=== PATIENT | female | born 1970 | race Caucasian/White ===

== ENCOUNTER 2017-02-11 15:19 | Emergency (ER) | payer OTHER ==
--- NOTE | 2017-02-11 16:15 | ED ORDER SUMMARY ---
..... Patient: JOSE ARNDT OrderSheet [facility] VisitID: [id number] [address] [place] [address] 46y, F Registration Date/Time: 02/11/2017 ORDER SHEET Weight: 54.4 kg (stated) Allergies: Sulfa Antibiotics GENERAL ORDERS: MEDICATION ORDERS: LORazepam PO 1 mg (HIGH ALERT MEDICATION, NOW) (16:10 02/11/2017 Lee DAVE) (Cancelled: Other16:35 Lee DAVE) IV FLUIDS: ORDER SHEET NOTES: [Electronically signed by Jojo Eaton R.N. (20:02/11/2017)] [Electronically signed by Jose G Vail MD (12:30 02/12/2017)] [Electronically locked/signed by Jojo Eaton R.N. (:02/11/2017)]
--- NOTE | 2017-02-11 16:15 | ED ORDER SUMMARY ---
..... Patient: JOSE ARNDT OrderSheet [facility] VisitID: [id number] [address] [place] [address] 46y, F Registration Date/Time: 02/11/2017 ORDER SHEET Weight: 54.4 kg (stated) Allergies: Sulfa Antibiotics GENERAL ORDERS: MEDICATION ORDERS: LORazepam PO 1 mg (HIGH ALERT MEDICATION, NOW) (16:10 02/11/2017 Lee DAVE) (Cancelled: Other16:35 Lee DAVE) IV FLUIDS: ORDER SHEET NOTES: [Electronically signed by Jojo Eaton R.N. (20:02/11/2017)] [Electronically signed by Jose G Vail MD (12:30 02/12/2017)] [Electronically locked/signed by Jojo Eaton R.N. (:02/11/2017)]
--- NOTE | 2017-02-11 16:15 | ED CLINICAL REPORT ---
Clinical Report - Physicians/Mid Levels [facility] [address] [place] [address] 02/11/2017 15:22 Patient: JOSE ARNDT Time Seen: 15:54. Arrived- By private vehicle. Historian- patient and family. HISTORY OF PRESENT ILLNESS Chief Complaint: ANXIOUS. This started several weeks ago. The patient has exhibited a behavior change. (increased anxiety). She is non-compliant with medication (out of antidepressant for some time). Has not been eating or sleeping. No delusions, suicidal thoughts or self-injury inflicted. She has had hallucinations (equivocal). The symptoms are described as moderate. No injury is present. Additional history - Ms Arndt has the diagnosis of anxiety and depression. She is a [facility] client and has missed several appointments. She is out of her Wellbutrin. Similar symptoms previously: REVIEW OF SYSTEMS No headache, chest pain, palpitations, abdominal pain or vomiting. No diarrhea. PAST HISTORY ( PCP: Zhang Dale Ops: BTL Illness: Anxiety and depression). SOCIAL HISTORY Smoker- current status unknown (Currently non smoker). ADDITIONAL NOTES The nursing notes have been reviewed. PHYSICAL EXAM Vital Signs: 02/11/2017 16:45 BP: 179/96. HR: 94. RR: 17. O2 saturation: 100%. Pain level now: 0/10. 02/11/2017 15:27 BP: 185/102. HR: 99. RR: 19. O2 saturation: 100%. Temp: 98.1 F. Pain level now: 0/10. Appearance: Alert. Anxious. (Shaking). Eyes: Pupils equal, round and reactive to light. Neck: Normal inspection. Neck supple. CVS: Normal heart rate and rhythm. Heart sounds normal. Respiratory: Chest nontender. Abdomen: Soft and nontender. Skin: Skin warm. Normal skin color. Extremities: Extremities exhibit normal ROM. No lower extremity edema. Psych / Neuro: Oriented X 3. Speech normal. Cognition normal. Thought process and content normal. Insight and judgement normal. Cranial nerves normal (as tested). Normal gait. No motor deficit. No sensory deficit. PROGRESS AND PROCEDURES Course of Care: My initial plan was to give lorazepam po in the ED and a 2-3 day supply for home use as well as a Wellbutrin Rx. I told the patient this. When the nurse Jojo went administer the med the patient was so soundly asleep that she was difficult to awaken. Jojo also called [facility] and found out that the patient had missed several appointments . I cancelled the Lorazepam po and Rx. CLINICAL IMPRESSION Anxiety reaction (WITH DEPRESSION). INSTRUCTIONS (STAY WITH YOUR FRIEND MAKE SURE YOU HAVE A MENTAL HEALTH APPOINTMENT. IMMEDIATE 911 CALL OR RETURN TO THE ED IF YOU BECOME AFRAID THAT YOU MIGHT HURT YOURSELF.). Prescription Medications: Wellbutrin 100 mg: Take 1 orally every 12 hours. Dispense thirty (30). No refills. Substitution is permissible. Follow-up: Follow up with doctor YOUR COUNSELLOR. Understanding of the discharge instructions verbalized by patient. (Electronically signed by Jose G Vail MD 02/12/2017 12:30)
--- NOTE | 2017-02-11 16:15 | ED NURSING NOTES ---
Clinical Report - Nurses [facility] [address] [place] [address] 02/11/2017 15:22 Patient: JOSE ARNDT TRIAGE Triage time 15:Feb 11 2017. Chief Complaint: HALLUCINATIONS and (pt reports auditory hallucinations "it really scares me" per father of her children x 1 month. pt has case sealer at [facility] Taurus Barron that was contacted and said to bring pt here for eval- denies SI "i just keep having thoughts that others around me are going to get hurt and I can't help them"). Alert. No acute distress. SEPSIS SCREEN: Sepsis Screen. Negative (no infection suspected/documented). DEANA COMA SCORE: Deana Coma Scale: 15- eyes open spontaneously (4); best verbal response- oriented x 4 (5); best motor response- obeys commands (6). --15:36 Jojo Eaton R.N. 15:27 02/11/17. BP: 185/102. HR: 99. RR: 19. O2 saturation: 100%. Temp: 98.1 F. Pain level now: 0/10. --15:36 Jojo Eaton R.N. Weight: 54.4 kg stated. Height/Length: 67 inches Per Patient. BMI: 18.8. --15:31 Jojo Eaton R.N. Medications None. --15:30 Jojo Eaton R.N. Medication/allergy information source: the patient. --15:36 Jojo Eaton R.N. Allergies Sulfa Antibiotics. --15:31 Jojo Eaton R.N. History Arrived by private vehicle. Historian: patient and family. Accompanied by family and friend. Onset. (1 months ago current c/o). She has had anxiety and describes feelings of depression. Admits to having hallucinations (1 months auditory per friend). PAST MEDICAL HX: Anxiety. Psychiatric illness. Immunizations: up-to-date. SOCIAL HX: Smoker- current status unknown (cigarette). Alcohol use; consumes beer occasionally. History of occasional drug use: marijuana. No infectious disease exposure. ABUSE ASSESSMENT: No report of abuse. SELF HARM ASSESSMENT: A self harm assessment was performed. The patient answered "yes" to the question "Have you recently felt down, depressed, or hopeless?" and "Have you noticed less interest or pleasure in doing things?" and "no" to the question "Do you have thoughts of harming or killing yourself?", "Are you here because you tried to hurt yourself?", "Have you ever tried to hurt yourself before today?", "Have you recently had thoughts about harming or killing others?" and "Do you have any dangerous items in your possession?". The patient reports their behavior. In the ED the patient has been having hallucinations and anxious. A friend at bedside. --15:36 Jojo Eaton R.N. PROBLEMS: Depression. Anxiety Reaction. Hypertension. --15:32 Jojo Eaton R.N. ADDITIONAL SURGERIES: Wrist surgery. --15:32 Jojo Eaton R.N. Interventions ID and allergy band on patient. To treatment room. --15:36 Jojo Eaton R.N. PHYSICAL ASSESSMENT Ambulatory to room. GENERAL / NEURO / PSYCH: Alert. Oriented X 4. Appears anxious. Patient's mood/affect appears tearful. Poor eye contact. Behavior appears abnormal, including paranoid behaviors and having apparent auditory hallucinations. The patient appears to have altered thought processes, verbalized as phobias. Patient appears unkempt. RESPIRATORY: Respirations not labored. CVS: Capillary refill less than 2 seconds. SKIN: Skin intact. Skin is warm and dry. Skin color is within normal limits. --15:37 Jojo Eaton R.N. NURSING PROGRESS NOTES Reassurance given. Patient identifiers checked. Call light placed in reach. Side rails up x 1. Bed placed in lowest position. Brakes of bed on. Patient ready for evaluation- chart flagged. Patient waiting for evaluation. --15:37 Jojo Eaton R.N. ( message left for pts SW at [facility]ron [phone]). --15:42 Jojo Eaton R.N. ( pt aware of need for urine). --15:43 Jojo Eaton R.N. ( rec call from [facility], reports pt has missed half of her apts, only been seen since November 13- brief psychotic f41.1 generalized anxiety disorder,). --16:13 Jojo Eaton R.N. DISPOSITION / DISCHARGE ( going in to dc pt and given ativan ordered, pt would not stay awake, I notified MD my concern in giving her ativan, order canceled. pt dc home with friends, denies SI/HI, pt strongly encouraged to f/u with [facility]. friends at bedside state she is difficult to get to apts, pt reports "cause I forget to go"). --16:44 Jojo Eaton R.N. Discharge instructions provided and reviewed with service desk analyst and the neighbor and patient. Reviewed medication(s) side effects and course information. Reviewed referrals. Patient and service desk analyst verbalized understanding. Written instructions provided in Sudanese. The patient was discharged by the physician. She was discharged home and accompanied by service desk analyst. She left the Emergency Department ambulatory and via private vehicle. --16:45 Jojo Eaton R.N. 16:45 02/11/17. BP: 179/96. HR: 94. RR: 17. O2 saturation: 100%. Temp: deferred. Pain level now: 0/10. --16:46 Jojo Eaton R.N. Departure time: 1641. --16:46 Jojo Eaton R.N. Locked/Released at 02/11/2017 20:28 by Jojo Eaton R.N.
--- NOTE | 2017-02-11 16:15 | ED CLINICAL REPORT ---
Clinical Report - Physicians/Mid Levels [facility] [address] [place] [address] 02/11/2017 15:22 Patient: JOSE ARNDT Time Seen: 15:54. Arrived- By private vehicle. Historian- patient and family. HISTORY OF PRESENT ILLNESS Chief Complaint: ANXIOUS. This started several weeks ago. The patient has exhibited a behavior change. (increased anxiety). She is non-compliant with medication (out of antidepressant for some time). Has not been eating or sleeping. No delusions, suicidal thoughts or self-injury inflicted. She has had hallucinations (equivocal). The symptoms are described as moderate. No injury is present. Additional history - Ms Arndt has the diagnosis of anxiety and depression. She is a [facility] client and has missed several appointments. She is out of her Wellbutrin. Similar symptoms previously: REVIEW OF SYSTEMS No headache, chest pain, palpitations, abdominal pain or vomiting. No diarrhea. PAST HISTORY ( PCP: Zhang Dale Ops: BTL Illness: Anxiety and depression). SOCIAL HISTORY Smoker- current status unknown (Currently non smoker). ADDITIONAL NOTES The nursing notes have been reviewed. PHYSICAL EXAM Vital Signs: 02/11/2017 16:45 BP: 179/96. HR: 94. RR: 17. O2 saturation: 100%. Pain level now: 0/10. 02/11/2017 15:27 BP: 185/102. HR: 99. RR: 19. O2 saturation: 100%. Temp: 98.1 F. Pain level now: 0/10. Appearance: Alert. Anxious. (Shaking). Eyes: Pupils equal, round and reactive to light. Neck: Normal inspection. Neck supple. CVS: Normal heart rate and rhythm. Heart sounds normal. Respiratory: Chest nontender. Abdomen: Soft and nontender. Skin: Skin warm. Normal skin color. Extremities: Extremities exhibit normal ROM. No lower extremity edema. Psych / Neuro: Oriented X 3. Speech normal. Cognition normal. Thought process and content normal. Insight and judgement normal. Cranial nerves normal (as tested). Normal gait. No motor deficit. No sensory deficit. PROGRESS AND PROCEDURES Course of Care: My initial plan was to give lorazepam po in the ED and a 2-3 day supply for home use as well as a Wellbutrin Rx. I told the patient this. When the nurse Jojo went administer the med the patient was so soundly asleep that she was difficult to awaken. Jojo also called [facility] and found out that the patient had missed several appointments . I cancelled the Lorazepam po and Rx. CLINICAL IMPRESSION Anxiety reaction (WITH DEPRESSION). INSTRUCTIONS (STAY WITH YOUR FRIEND MAKE SURE YOU HAVE A MENTAL HEALTH APPOINTMENT. IMMEDIATE 911 CALL OR RETURN TO THE ED IF YOU BECOME AFRAID THAT YOU MIGHT HURT YOURSELF.). Prescription Medications: Wellbutrin 100 mg: Take 1 orally every 12 hours. Dispense thirty (30). No refills. Substitution is permissible. Follow-up: Follow up with doctor YOUR COUNSELLOR. Understanding of the discharge instructions verbalized by patient. (Electronically signed by Jose G Vail MD 02/12/2017 12:30)
--- NOTE | 2017-02-11 16:15 | ED NURSING NOTES ---
Clinical Report - Nurses [facility] [address] [place] [address] 02/11/2017 15:22 Patient: JOSE ARNDT TRIAGE Triage time 15:Feb 11 2017. Chief Complaint: HALLUCINATIONS and (pt reports auditory hallucinations "it really scares me" per father of her children x 1 month. pt has family caseworker at [facility] Taurus Barron that was contacted and said to bring pt here for eval- denies SI "i just keep having thoughts that others around me are going to get hurt and I can't help them"). Alert. No acute distress. SEPSIS SCREEN: Sepsis Screen. Negative (no infection suspected/documented). DEANA COMA SCORE: Deana Coma Scale: 15- eyes open spontaneously (4); best verbal response- oriented x 4 (5); best motor response- obeys commands (6). --15:36 Jojo Eaton R.N. 15:27 02/11/17. BP: 185/102. HR: 99. RR: 19. O2 saturation: 100%. Temp: 98.1 F. Pain level now: 0/10. --15:36 Jojo Eaton R.N. Weight: 54.4 kg stated. Height/Length: 67 inches Per Patient. BMI: 18.8. --15:31 Jojo Eaton R.N. Medications None. --15:30 Jojo Eaton R.N. Medication/allergy information source: the patient. --15:36 Jojo Eaton R.N. Allergies Sulfa Antibiotics. --15:31 Jojo Eaton R.N. History Arrived by private vehicle. Historian: patient and family. Accompanied by family and friend. Onset. (1 months ago current c/o). She has had anxiety and describes feelings of depression. Admits to having hallucinations (1 months auditory per friend). PAST MEDICAL HX: Anxiety. Psychiatric illness. Immunizations: up-to-date. SOCIAL HX: Smoker- current status unknown (cigarette). Alcohol use; consumes beer occasionally. History of occasional drug use: marijuana. No infectious disease exposure. ABUSE ASSESSMENT: No report of abuse. SELF HARM ASSESSMENT: A self harm assessment was performed. The patient answered "yes" to the question "Have you recently felt down, depressed, or hopeless?" and "Have you noticed less interest or pleasure in doing things?" and "no" to the question "Do you have thoughts of harming or killing yourself?", "Are you here because you tried to hurt yourself?", "Have you ever tried to hurt yourself before today?", "Have you recently had thoughts about harming or killing others?" and "Do you have any dangerous items in your possession?". The patient reports their behavior. In the ED the patient has been having hallucinations and anxious. A friend at bedside. --15:36 Jojo Eaton R.N. PROBLEMS: Depression. Anxiety Reaction. Hypertension. --15:32 Jojo Eaton R.N. ADDITIONAL SURGERIES: Wrist surgery. --15:32 Jojo Eaton R.N. Interventions ID and allergy band on patient. To treatment room. --15:36 Jojo Eaton R.N. PHYSICAL ASSESSMENT Ambulatory to room. GENERAL / NEURO / PSYCH: Alert. Oriented X 4. Appears anxious. Patient's mood/affect appears tearful. Poor eye contact. Behavior appears abnormal, including paranoid behaviors and having apparent auditory hallucinations. The patient appears to have altered thought processes, verbalized as phobias. Patient appears unkempt. RESPIRATORY: Respirations not labored. CVS: Capillary refill less than 2 seconds. SKIN: Skin intact. Skin is warm and dry. Skin color is within normal limits. --15:37 Jojo Eaton R.N. NURSING PROGRESS NOTES Reassurance given. Patient identifiers checked. Call light placed in reach. Side rails up x 1. Bed placed in lowest position. Brakes of bed on. Patient ready for evaluation- chart flagged. Patient waiting for evaluation. --15:37 Jojo Eaton R.N. ( message left for pts SW at [facility] T[facility] Barron [phone]). --15:42 Jojo Eaton R.N. ( pt aware of need for urine). --15:43 Jojo Eaton R.N. ( rec call from [facility], reports pt has missed half of her apts, only been seen since November 13- brief psychotic f41.1 generalized anxiety disorder,). --16:13 Jojo Eaton R.N. DISPOSITION / DISCHARGE ( going in to dc pt and given ativan ordered, pt would not stay awake, I notified MD my concern in giving her ativan, order canceled. pt dc home with friends, denies SI/HI, pt strongly encouraged to f/u with [facility]. friends at bedside state she is difficult to get to apts, pt reports "cause I forget to go"). --16:44 Jojo Eaton R.N. Discharge instructions provided and reviewed with radiation oncology nurse and the neighbor and patient. Reviewed medication(s) side effects and course information. Reviewed referrals. Patient and radiation oncology nurse verbalized understanding. Written instructions provided in Moldovan. The patient was discharged by the physician. She was discharged home and accompanied by radiation oncology nurse. She left the Emergency Department ambulatory and via private vehicle. --16:45 Jojo Eaton R.N. 16:45 02/11/17. BP: 179/96. HR: 94. RR: 17. O2 saturation: 100%. Temp: deferred. Pain level now: 0/10. --16:46 Jojo Eaton R.N. Departure time: 1641. --16:46 Jojo Eaton R.N. Locked/Released at 02/11/2017 20:28 by Jojo Eaton R.N.
--- NOTE | 2017-02-12 12:30 | ED MED RECONCILIATION SUMMARY ---
Patient: JOSE ARNDT Medication Reconciliation Report [facility] VisitID: [id number] [address] [place] [address] 46y, F Registration Date/Time: 02/11/2017 Weight: 54.4 kg Height/Length: 67 in. BMI: 18.8 ALLERGIES: Sulfa Antibiotics The patient's Home Medications are listed below: NONE. The source(s) of the original Home Medication information: patient The following Medications were given to the patient in the Emergency Department: None. The following Medications were prescribed to the patient: Wellbutrin 100 mg: Take 1 orally every 12 hours. Dispense thirty (30). No refills. Substitution is permissible. -- Jose G Vail MD
--- NOTE | 2017-02-12 12:30 | ED MAR SUMMARY ---
..... Medication Administration Record [facility] [address] [place], [place] [id number] Patient: JOSE ARNDT Visit ID: [id number] 46y, F Weight: 54.4 kg Height/Length: 67 in BMI: 18.8 ALLERGIES: Sulfa Antibiotics
--- NOTE | 2017-02-12 12:30 | ED MED RECONCILIATION SUMMARY ---
Patient: JOSE ARNDT Medication Reconciliation Report [facility] VisitID: [id number] [address] [place] [address] 46y, F Registration Date/Time: 02/11/2017 Weight: 54.4 kg Height/Length: 67 in. BMI: 18.8 ALLERGIES: Sulfa Antibiotics The patient's Home Medications are listed below: NONE. The source(s) of the original Home Medication information: patient The following Medications were given to the patient in the Emergency Department: None. The following Medications were prescribed to the patient: Wellbutrin 100 mg: Take 1 orally every 12 hours. Dispense thirty (30). No refills. Substitution is permissible. -- Jose G Vail MD
--- NOTE | 2017-02-12 12:30 | ED DISCHARGE INSTRUCTIONS ---
Patient: JOSE ARNDT General Instructions [facility] VisitID: [id number] [address] [place] [address] 46y, F Registration Date/Time: 02/11/2017 Anxiety reaction (WITH DEPRESSION). INSTRUCTIONS (STAY WITH YOUR FRIEND MAKE SURE YOU HAVE A MENTAL HEALTH APPOINTMENT. IMMEDIATE 911 CALL OR RETURN TO THE ED IF YOU BECOME AFRAID THAT YOU MIGHT HURT YOURSELF.). Prescription Medications: Wellbutrin 100 mg: Take 1 orally every 12 hours. Dispense thirty (30). No refills. Substitution is permissible. Follow-up: Follow up with doctor YOUR COUNSELLOR. Understanding of the discharge instructions verbalized by patient. ADDITIONAL INFORMATION Stress Reaction Anxiety is the feeling we all get when we think something bad might happen. It is a normal response to stress and usually causes only a mild reaction. When anxiety becomes more severe, emotions may interfere with daily life. In some cases, you may not even be aware of what it is youre anxious about! During an anxiety reaction, you may feel like you are helpless, nervous, depressed or irritable. Your body may show signs of anxiety in many ways. You may experience dry mouth, shakiness, dizziness, weakness, trouble breathing, chest pressure, headache, nausea, diarrhea, tiredness, inability to sleep or sexual problems. Home Care: 1) Try to locate the sources of stress in your life. They may not be obvious! These may include: -- Daily hassles of life which pile up (traffic jams, missed appointments, car troubles, etc.) -- Major life changes, both good (new baby, job promotion) and bad (loss of job, loss of loved one) -- Overload: feeling that you have too many responsibilities and can't take care of all of them at once -- Feeling helpless, feeling that your problems are beyond what youre able to solve 2) Notice how your body reacts to stress. Learn to listen to your body signals. This will help you take action before the stress becomes severe. 3) When you can, do something about the source of your stress. (Avoid hassles, limit the amount of change that happens in your life at one time and take a break when you feel overloaded). 4) Unfortunately, many stressful situations cannot be avoided. It is necessary to learn HOW TO MANAGE STRESS better. There are many proven methods that will reduce your anxiety. These include simple things like exercise, good nutrition and adequate rest. Also, there are certain techniques that are helpful: relaxation and breathing exercises, visualization, biofeedback and meditation. For more information about this, consult your doctor or go to a local bookstore and review the many books and tapes available on this subject. Follow Up If you feel that your anxiety is not responding to self-help measures, contact your doctor or make an appointment with a counselor. Get Prompt Medical Attention if any of the following occur: -- Your symptoms get worse -- Chest pain or trouble breathing -- Severe headache not relieved by rest and mild pain reliever -- Rapid or irregular heartbeat, fainting You have been given the following additional information: Anxiety Reaction (Electronically signed by Jose G Vail MD 02/12/2017 12:30)
--- NOTE | 2017-02-12 12:30 | ED MAR SUMMARY ---
..... Medication Administration Record [facility] [address] [place], [place] [id number] Patient: JOSE ARNDT Visit ID: [id number] 46y, F Weight: 54.4 kg Height/Length: 67 in BMI: 18.8 ALLERGIES: Sulfa Antibiotics
== END 2017-02-11 16:41 | disposition home or self-care (01) ==
LOC: ED SRH 15:19
DX: F41.1 Generalized anxiety disorder (principal); F32.9 Major depressive disorder, single episode, unspecified; F12.10 Cannabis abuse, uncomplicated; I10 Essential (primary) hypertension